=== PATIENT | male | born 1935 | race Caucasian/White ===

== ENCOUNTER 2017-03-17 20:12 | Inpatient (IN) | payer MEDICARE, OTHER ==
[~2017-03-17] VITALS: Ht 175.3 cm; Wt 80.7 kg
--- NOTE | ~2017-03-17 | CONS ---
[facility] [address], [place] [address] Cancelled PATIENT NAME: GEORGE TANNER CONSULTATION DATE OF : 37 PHYSICIAN: NICHOLAS AU MD REPORT #: [id number] REPORT IS CONFIDENTIAL AND NOT TO BE RELEASED WITHOUT AUTHORIZATION
[~2017-03-17 20:12] MED LIST: ASPIRIN EC81 MG PO; FLOMAX0.4 MG PO; MULTI VITAMIN1 EACH PO; PERCOCET 7.5-31 EACH PO; VITAMIN C1000 MG PO
[2017-03-17] MEDS ORDERED: ATORVASTATIN CA20 MG PO (20:29)
[2017-03-17] MEDS ORDERED: METOPROLOL SUCC25 MG PO (20:29)
--- NOTE | 2017-03-18 02:02 | NUR ---
PT ARRIVED TO ROOM 127 AT 2300. TRANSFERRED SELF TO BED FROM [facility]. CHEST TUBE IN PLACE TO WATER SEAL. PLACED TO SUCTION UP TO -80mmHg WALL SUCTION (PER GEM SETTER RECOMMENDATION). SUCTION BELLOW EXPANDED TO KUNAL. SUCTION PRESSURE AT -[id number]. WATER SEAL FILLED TO 2CM LEVEL WITHOUT FLUCTUATION IN WATER LEVEL. SANGINEOUS SHADOWING NOTED ON TAPE DRESSING COVERING INSERTION SITE. NO CREPITUS NOTED. PT DENIES NEED FOR PAIN MEDICATION.
--- NOTE | 2017-03-18 02:47 | NUR ---
IN TO ASSESS PT. PT DENIES NEEDS. CHEST TUBE IN PLACE, NO CHANGES FROM PREVIOUS ASSESSMENT.
--- NOTE | 2017-03-18 03:59 | NUR ---
PT AWAKEND BY NEED TO VOID. PULLS AGAINST WALKER TO GET OOB. AMB TO BR USING WALKER TO STEADY SELF. VOIDED QS IN TOILET.BACK TO BED.HR 100-105 SR. DECLINES MOST OFFERS OF ASSISTANCE. DECLINED OFFER OF SOMETHING TO DRINK.
--- NOTE | 2017-03-18 06:02 | NUR ---
PT ASLEEP. ASSESSMENT OF CHEST TUBE UNCHANGED. O2 DECREASED TO 1L NC FOR SPO2 98% ON 2L.
--- NOTE | 2017-03-18 09:53 | NUR ---
PT AWAKE AND ALERT, VITAL SIGNS TAKEN AND PT DENIES C/O OF DISCOMFORT. STATES PAIN "MAYBE A [address] TO 20 CM WALL SUCTION AND DRAINING SMALL AMT OF S/S/ FLUID. PT VOIDING TO URINAL - CLEAR YELLOW URINE. ASSESSMENT COMPLETED.
--- NOTE | 2017-03-18 10:27 | NUR ---
PT SLEEPING WITH REU. SATS 96% ON 2L PER NC.
--- NOTE | 2017-03-18 11:23 | NUR ---
WOUND CARE NURSES, Moose AKINS AND Daniel WALSH IN TO ASSESS PT SKIN.
--- NOTE | 2017-03-18 11:54 | NUR ---
PT AWAKE, ASSESSMENT COMPLETED, DENIES C/O OF DISCOMFORT AT THIS TIME. PT USING IS VERY WELL, UP TO 2500 MLS.
--- NOTE | 2017-03-18 13:43 | NUR ---
PT AT 100% OF LUNCH, IN TO VISIT WITH PT.
--- NOTE | 2017-03-18 14:43 | NUR ---
PT IS RESTING IN BED, JORGE BY HIS SIDE. BOTH FRIENDLY, THANKFUL FOR THE CARE THAT PT HAS RECEIVED. PT EXPRESSED SOME CONCERN FOR HEALTH ISSUES JORGE IS EXPERINCING WELL. SHE IS TO GO TO [place] FOR TESTS LATER THIS WEEK. THEIR SONS WILL ARRANGE FOR HER TRANSPORTATION. HAD PRAYER WITH BOTH OF THEM, WILL CONTINUE TO FOLLOW
--- NOTE | 2017-03-18 14:48 | NUR ---
MED REC COMPLETE WITH PATIENT INTERVIEW. PATIENT HAS LOW ENERGY FROM METOPROLOL. PATIENT ONLY TAKES ONE DOSE IN THE EVENING. PATIENT FILLS AT [facility] [place] [facility] [place].
--- NOTE | 2017-03-18 16:03 | NUR ---
ASSESSMENT AND VS COMPLETED. PT STATES "I CAN FEEL THAT TUBE WHEN I TAKE A DEEP BREATH". DENIES NEED FOR PAIN MED AT THIS TIME. PT RESTING WITH HOB ELEVATED, VISITING WITH PT IN ROOM. CT DRAINING SMALL AMT S/S FLUID.
--- NOTE | 2017-03-18 16:20 | CONS ---
[facility] [address], [place] [address] Signed DATE OF SERVICE: 03/17/2017 REFERRING PHYSICIAN: Dr. Candy Ribeiro. CHIEF COMPLAINT: Shortness of breath. HISTORY OF PRESENT ILLNESS: Aldo is an 81-year-old gentleman, who came back in 2005 with a right-sided pneumothorax requiring chest tube placement. He said that probably the last week he has had progressive shortness of breath and a sense of tightness on his right chest. He finally came into the emergency room with his for evaluation. He has no shortness of breath here or any increased work of breathing, and he is able to talk in full sentences. Chest x-ray shows near complete right pneumothorax. I was therefore asked to see him as a general surgeon on-call here in the ER. PAST MEDICAL HISTORY: Pneumothorax in 2016, hypertension, hypercholesterolemia, benign prostatic hyperplasia, and is hard of hearing. PAST SURGICAL HISTORY: He had back surgery in 1965. There was no metal. He had a right chest tube placed in 2005. He has had bilateral knee surgeries long time ago with Dr. Dinero and Dr. Peterson. SOCIAL HISTORY: He smoked heavy for 4 or 5 years back in the 60s and quit. He has occasional drink. He is to his , Alissa, at [phone]. He has 2 children. She has 2 children. They live in her house and he continues to drive. 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 He goes up to see Dr. Stanford at the [facility] in [place], [place]. FAMILY HISTORY: Dad of old age. Mom ended up with complications of tetanus. REVIEW OF SYSTEMS: He had 10 systems reviewed and there are no new findings. ALLERGIES: None. MEDICATIONS: Tamsulosin, multivitamin, vitamin C, aspirin, atorvastatin and metoprolol. PHYSICAL EXAMINATION: GENERAL: Kalia is an 81-year-old gentleman, who is lying supine semi-recumbent in his ER Electronically Signed By: NICHOLAS AU MD 03/18/17 1620 PATIENT NAME: ALDO TANNER CONSULTATION DATE OF : 36 PHYSICIAN: NICHOLAS AU MD REPORT #: [id number] REPORT IS CONFIDENTIAL AND NOT TO BE RELEASED WITHOUT AUTHORIZATION [facility] [address], [place] [address] Signed bed. His is at the bedside. LUNGS: He does not have any shortness of breath or increased work of breathing. He has decreased breath sounds on the right. HEART: Regular rate and rhythm. ABDOMEN: Soft, nontender. LABORATORY DATA: His white blood cell count is 10, hemoglobin 15, neutrophils 68, platelets 221. IMAGING: Chest x-ray shows near complete right pneumothorax. ASSESSMENT AND PLAN: Aldo is an 81-year-old gentleman with significant right pneumothorax. This represents the 2nd pneumothorax on the same side over the course of about a year. I explained to Kalia we would go ahead and place a chest tube here in the emergency room. We went through that in great detail. He has expressed understanding and would like to proceed. MD BRENT Bynum/Efren /[id number] cc: MD Nicholas Devries MD Electronically Signed By: NICHOLAS AU MD 03/18/17 1620 PATIENT NAME: ALDO TANNER CONSULTATION DATE OF : 36 PHYSICIAN: NICHOLAS AU MD REPORT #: [id number] REPORT IS CONFIDENTIAL AND NOT TO BE RELEASED WITHOUT AUTHORIZATION
--- NOTE | 2017-03-18 16:20 | OR ---
[facility] [address] [place], [place] [address] Signed DATE OF SERVICE: 03/17/2017 PREOPERATIVE DIAGNOSIS: Recurrent right pneumothorax. POSTOPERATIVE DIAGNOSIS: Recurrent right pneumothorax. PROCEDURES: Placement of right 28-Anguillan chest tube. ESTIMATED BLOOD LOSS: None. INDICATIONS: Aldo is an 81-year-old gentleman, who came in 2016 with his fist right-sided pneumothorax. He required chest tube placement. He said he smoked heavily for 4 or 5 years back in the 60s, but quit when he first came out of the [employer]. In the meantime he said he has done well. This week he has had progressive shortness of breath. Some tightness in his chest. He came to the emergency room with his and sure enough, a chest x-ray confirmed a complete pneumothorax on the right. I was asked to see him as a general surgeon containers sales representative. I met with Aldo and his here in the emergency room. We discussed his recurrent pneumothorax. We discussed the chest tube placement. He understands there is risk including, but not limited to bleeding, infection, scarring, change in contour of the skin, damage to his lung, persistent air leak of his lung or inability to re-expand the lung completely or possible need for additional procedures. He expressed understanding and wished to proceed. PROCEDURE NOTE: Aldo was placed supine semi-recumbent in his ER bed. The right chest wall was prepped and draped in the usual sterile fashion. Local anesthetic was injected into the skin in between the intercostal space. An incision was made obliquely to open up the skin and we tunneled this up over 2 ribs and into the chest. The 28-Anguillan chest tube was inserted without any resistance as expected. It was hooked up to our atrium. It was held in place with 0 silk sutures. Dry gauze and tape was applied to the chest tube site. We just finished our repeat chest x-ray and his lung has completely expanded without any obvious air leak. He is doing well and has no shortness of breath or increased work of breathing and he will be admitted to the hospital. MD BRENT Bynum/Amberl /[id number] Electronically Signed By: NICHOLAS AU MD 03/18/17 1620 PATIENT NAME: ALDO TANNER OPERATIVE REPORT DATE OF : 36 PHYSICIAN: NICHOLAS AU MD REPORT #: [id number] REPORT IS CONFIDENTIAL AND NOT TO BE RELEASED WITHOUT AUTHORIZATION [facility] [address] [place] [address] [place], [place] [address] Signed cc: MD Nicholas Devries MD Electronically Signed By: NICHOLAS AU MD 03/18/17 1620 PATIENT NAME: ALDO TANNER OPERATIVE REPORT DATE OF : 36 PHYSICIAN: NICHOLAS AU MD REPORT #: [id number] REPORT IS CONFIDENTIAL AND NOT TO BE RELEASED WITHOUT AUTHORIZATION
--- NOTE | 2017-03-18 16:31 | NUR ---
DR. AU IN TO ASSESS PT.
--- NOTE | 2017-03-18 17:03 | EKG ---
[facility] [address] [facility] [place] [address] Signed Normal sinus rhythm Normal ECG No previous ECGs available Confirmed by KRISTEN LEBLANC MD ([id number]) on 03/18/2017 5:02:51 PM Electronically Signed By: KRISTEN LEBLANC MD 03/18/17 1703 PATIENT NAME: GEORGE TANNER Electrocardiogram DATE OF : 37 PHYSICIAN: KRISTEN LEBLANC MD REPORT #: [id number] REPORT IS CONFIDENTIAL AND NOT TO BE RELEASED WITHOUT AUTHORIZATION
--- NOTE | 2017-03-18 17:32 | NUR ---
REPORT RECEIVED VIA TELEPHONE FROM ALFONSO HUGHES IN CCU. WILL TRANSFER PT TO ROOM 114 SOON.
--- NOTE | 2017-03-18 18:18 | NUR ---
RIGHT HAND IV SITE WITH REDNESS NOTED, IV DC'D WITH CATH INTACT. 22 GAUGE IV INSERTED IN LEFT HAND, IV D5 LR RUNNING AT 50 MLS/HR.
--- NOTE | 2017-03-18 18:50 | NUR ---
PT ATE 100% OF DINNER, AMBULATED TO BATHROOM WITH ASSIST. PT HAD MEDIUM BROWN, FORMED BM. PT AMBULATED TO ROOM 114 ON MED/SURG, REPORT GIVEN TO MED/SURG NURSE.
--- NOTE | 2017-03-18 19:10 | NUR ---
BEDSIDE REPORT RECEIVED FROM OFFGOING NURSE. PT LYING IN BED DENIES PAIN, SOB. DENIES NEEDS AT THIS TIME. CALL LIGHT WITHIN REACH.
--- NOTE | 2017-03-18 20:09 | NUR ---
PT ASSESSMENT COMPLETE. PLEASANT AFFECT, PT DENIES PAIN. STATES "IT'S JUST ANNOYING". RATES 1-2/10, STATES IT IS TOLERABLE. PT DENIES SOB. O2 @ 1LPM. CHEST TUBE PRESENT TO WATER SEAL. WALL SUCTION ~80mmHg AND SUCTION PRESSURE 20CM. NO FLUCUATIONS NOTED TO WATER LEVEL. SANGUINEOUS DRAINAGE PRESENT. GAUZE AND TAPE PRESENT TO CHEST TUBE SITE. SANGUINEOUS SHADOWING PRESENT BENEATH TAPE. LUNG SOUNDS CLEAR, NO CREPITUS NOTED TO CHEST TUBE SITE. PT PROVIDED WITH URINAL AT BEDSIDE PER REQUEST. DENIES OTHER NEEDS AT THIS TIME. CALL LIGHT WITHIN REACH.
--- NOTE | 2017-03-18 22:00 | NUR ---
PT SITTING UP IN BED AWAKE. PT DENIES PAIN OR SOB. URINAL AT BEDSIDE, PT USING APPROPRIATELY. PT REQUESTS MORE WATER, PROVIDED. PT DENIES OTHER NEEDS. CALL LIGHT WITHIN REACH.
--- NOTE | 2017-03-19 00:30 | NUR ---
PT RESTING IN BED WITH EYES CLOSED. RESPIRATIONS EVEN AND UNLABORED. PT APPEARS TO BE SLEEPING. CALL LIGHT WITHIN REACH.
--- NOTE | 2017-03-19 02:43 | NUR ---
PT ASSESSMENT COMPLETED. PT DENIES PAIN OR SOB. LUNG SOUNDS CLEAR. CHEST TUBE UNCHANGED FROM PREVIOUS ASSESSMENT. SANGUINEOUS SHADOWING PRESENT TO CHEST TUBE DRESSING PREVIOUSLY NOTED. PT CONTINUES TO USE URINAL AT BEDSIDE. PT DENIES NEEDS AT THIS TIME. CALL LIGHT WITHIN REACH.
--- NOTE | 2017-03-19 05:28 | NUR ---
CCU TX. PT SLEPT MOST OF SHIFT. PAIN VERY WELL CONTROLLED. CHEST TUBE WITH SANGUINEOUS DRAINAGE. O2 @ 1LPM. NO SOB, LUNGS CLEAR. DRESSING TO CHEST TUBE SITE D/I, SANGUINEOUS SHADOWING NOTED, UNCHANGED THIS SHIFT. D5LR @ 50. SBA.
--- NOTE | 2017-03-19 07:30 | NUR ---
one person assist patient up to chair. assist with bath. oral care done. linenes changed. call light in reach. bugs found in room. charge nurse and facilities notified. patient would like to stay in his room.fresh ice water given.
--- NOTE | 2017-03-19 08:40 | NUR ---
PT AWAKE SITTING UP IN RECLINER EATING BREAKFAST, SAMEER WELL. DENIES PAIN OR NAUSEA. DENIES SOB OR DIFFICULTY BREATHING. CHEST TUBE IN PLACE TO WALL SUCTION. DRESSING TO RIGHT CHEST HAS MODERATE AMOUNT OF OLD SHADOWING, ANGELY AWARE. PT SATTING MID 90'S ON 1LNC. IV INFUSING IN LEFT HAND WNL, NO REDNESS OR INFLAMMATION AT SITE. PT ALERT AND ORIENTED, CALLS APPROPRIATELY. CALL LIGHT WITHIN REACH.
--- NOTE | 2017-03-19 10:29 | NUR ---
PATIENT SITTING UP IN CHAIR. IN ROOM WITH HIM. FRESH ICE WATER GIVEN. ORAL CARE DONE. NO OTHER NEEDS AT THIS TIME. CALL BUTTON IN REACH.
--- NOTE | 2017-03-19 11:15 | NUR ---
PT REQUESTED TO GET BACK TO BED FROM CHAIR. SBA TO BED, AMB WELL. DENIES PAIN OR OTHER CONCERNS. CHEST TUBE IN PLACE, NO CHANGES TO DRESSING OR INSERTION SITE, NO CREPITUS NOTED. AT BEDSIDE. CALL LIGHT WITHIN REACH.
--- NOTE | 2017-03-19 13:14 | NUR ---
PT MOVED FORM CCU LAST NIGHT. SITTING UP IN BED, SEEMS MORE COMFORTABLE TODAY. HE IS VERY ALERT AND ORIENTED. IS IS IN [place] AT DRS APPT. SHE IS TO STOP BACK IN WHEN SHE GETS IN TOWN. FRIEND CAME BY TO VISIT. I FELT IT BEST I LEAVE AND LET THEM VISIT. WILL FOLLOW NEEDED
--- NOTE | 2017-03-19 13:54 | NUR ---
PATIENT SITTING UP IN BED. FRESH ICE WATER GIVEN. NO NEEDS AT THIS TIME. VISITORS IN ROOM WITH HIM. CALL BUTTON IN REACH.
--- NOTE | 2017-03-19 14:30 | NUR ---
COTY CARE DONE. PATIENT ABULATED HALLWAY ONE TIME AROUND ONE PERSON ASSIST WITH WALKER. PATIENT STATES THAT SHE IS IRRITATED DUE TO HER HEMOROID PAIN AND BEING TIERED. PATIENT REFUSED SHOWER. BACK IN BED WITH CALL BUTTON IN REACH. NO OTHER NEEDS AT THIS TIME.
--- NOTE | 2017-03-19 14:45 | NUR ---
PATIENT TOOK HER OXYGEN TUBING OFF OXYGEN LEVEL AT 74%. PLACED NC BACK ON AND BUMPED OXYGEN UP TO 6 PER RT REQ. SAT BACK UP TO 93% PATIENT NOW ON 5L OF O2 And level at 91%. patient states she forgot to put NC back on. call button in reach. no other needs at this time.
--- NOTE | 2017-03-19 15:25 | NUR ---
PT AWAKE IN BED, VISITING WITH FAMILY. DENIES NEEDS OR CONCERNS AT THIS TIME. CALL LIGHT WITHIN REACH.
--- NOTE | 2017-03-19 17:30 | NUR ---
PT ATE ALL OF DINNER, SAMEER WELL. SBA UP TO RESTROOM FOR PM CARES. PT BRUSHED TEETH, WASHED FACE AND HANDS. AMB BACK TO BED. SATTING 95% ON 1LNC. DENIES DIFFICULTY OR SOB. CHEST TUBE REMAINS IN PLACE, NO CHANGES TO DRESSING. CALL LIGHT WITHIN REACH.
--- NOTE | 2017-03-19 20:15 | NUR ---
IN TO MEET PT, REPORT RECV'D. PT AWAKE AND ALERT. WATCHING TV. CHEST TUBE IN PLACE. SUCTION AND O2 IN PLACE. FRESH WATER GIVEN. NO FURTHER NEEDS AT THIS TIME. CALL LIGHT WITH IN REACH.
--- NOTE | 2017-03-19 22:22 | NUR ---
IN TO CHECK ON PT, PT APPEARS TO BE SLEEPING. NO APPARENT DISTRESS NOTED. CHEST TUBE AND O2 IN PLACE. CALL LIGHT WITH IN REACH.
--- NOTE | 2017-03-20 00:42 | NUR ---
IN TO CHECK ON PT, PT APPEARS TO BE SLEEPING. NO APPARENT DISTRESS NOTED. CHEST TUBE AND O2 IN PLACE. CALL LIGHT WITH IN REACH.
--- NOTE | 2017-03-20 02:38 | NUR ---
IN TO CHECK ON PT, PT APPEARS TO BE SLEEPING. NO APPARENT DISTRESS NOTED. CHEST TUBE IN PLACE, O2 IN PLACE. CALL LIGHT WITH IN REACH.
--- NOTE | 2017-03-20 04:19 | NUR ---
PT HAS HAD UNEVENTFUL SHIFT, SLEPT WELL. NO COMPLAINTS OF PAIN. CHEST TUBE IN PLACE WITH SANGUINEOUS DRAINAGE. O2 @ 1L. DRSG D/I. SHADOWING AND OLD DRAINAGE NOTED ON DRESSING, NO CHANGE THROUGHOUT THE SHIFT. NO SOB NOTED, LUNGS CLEAR. PT AAO X3. CXR ORDERED FOR THIS AM. SUPPLIES AT BEDSIDE PER DR. AU.
--- NOTE | 2017-03-20 07:15 | NUR ---
IN TO MEET PT, REPORT RECVD. PT AWAKE AND ALERT, WATCHING TV. CHEST TUBE DRSG ASSESSED. SPOT CHECK O2 COMPLETED. NO FURTHER NEEDS AT THIS TIME. CALL LIGHT WITH IN REACH.
--- NOTE | 2017-03-20 08:11 | NUR ---
PATIENT SITTING UP AT EDGE OF BED USING URINAL, TOLERTING ACTIVITY WELL. NO SOB, 1L NC. SPOT CHECK 93% SATURATION. CHEST TUBE INTACT, ON LOW CONTINUIOUS 82 MM/HG. GOOD AIR MOVMENT THROUGHOUT LUNGS, NOTED SOME ADVENTASCIOUS SOUNDS. AFEBRILE. PATIENT STATES " I SLEPT WELL LAST NIGHT". AAOX3. PATIENT REPORTS TUBE MAY BE DISCONTINUED TODAY PENDING CHEST XRAY RESULTS.
--- NOTE | 2017-03-20 11:00 | NUR ---
ROUNDED WITH DR. AU. ASSISTED WITH REMOVING CHEST TUBE. PATIENT TOLERATED WELL. PATIENT STATES " I AM FEELING BETTER NOW THAT ITS OUT". PLAN TO AMBULATE IN HALLS.
--- NOTE | 2017-03-20 13:00 | NUR ---
PATIENT RESTING BACK IN BED, STATES " I AM FEELING BETTER". NO COMPLAINTS OF PAIN. LUNG SOUNDS DIMINISHED IN RIGHT BASE. VOIDING WELL. AAOX3
--- NOTE | 2017-03-20 13:51 | NUR ---
PT SITTING UP IN BED, SON ROLDAN HAD JUST BEEN BY TO VISIT. HE WAS FEELING MUCH BETTER-DRAIN WAS REMOVED. PLAN IS TO DC TOMORROW. GOOD CONVERSATION, STAFF WAITING TO DO VITALS. EXTENDED A BLESSING, WILL FOLLOW NEEDED
--- NOTE | 2017-03-20 16:23 | NUR ---
GOT UP IN CHAIR FOR DINNER.
--- NOTE | 2017-03-20 16:40 | NUR ---
PATIENT AWAKE IN BED. TOOK VITALS. THEY TOOK CHEST TUBE OUT
--- NOTE | 2017-03-20 16:42 | NUR ---
AWAKE IN BED. MOVED TO CHAIR. EMPTYED URNAIL. FRESH ICE WATER. COMPLETE LINEN CHANGE. PATIENT HAS CALL LIGHT IN REACH.
--- NOTE | 2017-03-20 17:00 | NUR ---
ADMINISTERED MIRALAX TO PATIENT, PER REQUEST. UP TO RECLINER, ENCOURAGED TO WALK IN HALLS. PATIENT APPEARS TO VERBALIZE UNDERSTANDING WITH POC.
--- NOTE | 2017-03-20 18:21 | NUR ---
PATIENT CHEST TUBE REMOVED AROUND [address] AU. PATIENT TOLERATED WELL. NO ADVERSE EFFECTS. LUNG SOUNDS HAVE NOT CHANGED, CONTINUES TO BE DIMINISHED IN RIGHT BASE. VS STABLE. ACTIVITY INCREASED. PATIENT REPORTS GOOD PAIN CONTROL THROUGHOUT DAY.
--- NOTE | 2017-03-20 19:15 | NUR ---
IN TO SEE PT, REPORT RECV'D. PT AWAKE AND ALERT, WATCHING TV. PT STATES HE HAD A "GREAT DAY." NO NEEDS AT THIS TIME. CALL LIGHT IN REACH.
--- NOTE | 2017-03-20 20:50 | NUR ---
IN TO SEE PT, ASSESSMENT COMPLETE. PM MEDICATION GIVEN. DRSG ASSESSED. MEDIUM CIRICULAR AREA OF SHADOWING NOTED. PT DENIES CHEST PAIN AND SOB. SL IN PLACE. NO NEEDS AT THIS TIME. CALL LIGHT IN REACH.
--- NOTE | 2017-03-20 23:54 | NUR ---
IN TO CHECK ON PT, PT APPEARS TO BE SLEEPING. NO APPARENT DISTRESS NOTED. RR 16, EVEN AND UNLABORED. CALL LIGHT WITH IN REACH.
--- NOTE | 2017-03-21 01:52 | NUR ---
IN TO CHECK ON PT, PT APPEARS TO BE SLEEPING. RR 17, EVEN AND UNLABORED. CALL LIGHT WITH IN REACH.
--- NOTE | 2017-03-21 04:52 | NUR ---
PT RESTED WELL THROUGH OUT THE SHIFT. NO COMPLAINTS OF PAIN OR SOB. RLL SOUNDS DIMINISHED, BUT CLEAR IN ALL OTHER AREAS. PT UP TO RESTROOM INDEPENDENTLY OR STANDBY ASSIST. AAO X3, PLEASANT DEMEANOR. USES CALL LIGHT APPROPRIATLY.
--- NOTE | 2017-03-21 06:30 | NUR ---
IN TO CHECK ON PT, PT AWAKE AND UP TO BATHROOM. PT STATES HE "FINALLY HAD A BM." IV SITE NON INTACT. IV DC'D. VITAL OBTAINED. O2 985 ON RA. DENIES CHEST PAIN AND SOB. DRSG D/I, SHADOWING UNCHANGED. NO FURTHER NEEDS AT THIS TIME. CALL LIGHT WITH IN REACH.
--- NOTE | 2017-03-21 08:20 | NUR ---
PATIENT UP SITTING IN RECLINER, READY TO AMBULATE IN [place]. LUNG SOUNDS CLEAR THROUGHOUT OUT, IMPROVED FROM YESTERDAY. NO COMPLAINTS OF PAIN. IS HAVING A REGULAR BM NOW. PATIENT STATES "I FEEL GOOD ENOUGH TO GO HOME". BREAKFAST ORDERED AND ON ITS WAY. NO NEW DRAINAGE TO BANDAGE ON RIGHT SIDE.
--- NOTE | 2017-03-21 11:07 | NUR ---
PT UP WALKING THE HALLS W/O O2. PT SAID HE FEELS THE BEST HE HAS FELT ALL WEEK. IS WAITING FOR THE RESULTS OF X-RAY OF LUNG. IS TRYING TO SET UP VISIT W/RIGGING HELPER AT [facility]. HOPES TO GO HOME TODAY. VERY PLEASED WITH THE CARE HE HAS RECEIVED AT [facility]
[2017-03-21] MEDS ORDERED: NORCO 5-325 TA1 EACH PO (12:10)
[2017-03-21] MEDS ORDERED: MIRALAX17 GM PO (12:11)
--- NOTE | 2017-03-25 10:12 | DS ---
[facility] [address] [place], [place] [address] Signed DATE OF ADMISSION: 03/17/17 DATE OF DISCHARGE: 03/21/17 FINAL DIAGNOSIS Recurrent ipsilateral right-sided spontaneous pneumothorax. PROCEDURE Placement of right chest tube. Multiple chest x-rays. HISTORY OF PRESENT ILLNESS Aldo is an 81-year-old gentleman, who still lives with his in their house here and continues to drive and maintain good functional status. 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 He came in 2005 with spontaneous pneumothorax requiring a chest tube placement, did well and was discharged from followup. He then came back after about a week of shortness of breath and dyspnea on exertion. The chest x-ray confirmed his complete right-sided pneumothorax. I was called to see him as a general surgeon emissions engineer. HOSPITAL COURSE I met Kalia and his in the emergency room. We placed a 28-Australian right-sided chest tube with re-expansion of the entire lung. From the very beginning, he never had an air leak. We left the chest tube in a little over 2 days and we then removed it. He has just a tiny sliver of an apical pneumothorax that has not changed even after the chest tube was removed. He has been ambulating in the hallways and using his incentive spirometer quite well. He has been tolerating diet and been on his chronic home medications. He never demonstrates much pain and therefore has not used much pain medication. At this point, he is doing quite well and we are going to discharge him to home. DISCHARGE PLANS AND MEDICATIONS Kalia will be discharged to home with a prescription for Stehekin 5/325, 1-2 tablets p.o. q.4-6 hours p.r.n. pain. We will dispense 25 tablets with no refills. We recommended he use some MiraLAX at home if he experiences constipation. We did give him MiraLAX here in the hospital and that worked out quite nicely. Jerry rodriguez can resume all his chronic medications at home. He can perform his activities of daily living including walking up and down stairs and bathing as usual. However, he should not lift over about 20 pounds. We are going to have him remove our chest tube site dressing on 03/22/2017. He can then Electronically Signed By: NICHOLAS AU MD 03/25/17 1012 PATIENT NAME: ALDO TANNER DISCHARGE SUMMARY DATE OF : 36 PHYSICIAN: NICHOLAS AU MD REPORT #: [id number] REPORT IS CONFIDENTIAL AND NOT TO BE RELEASED WITHOUT AUTHORIZATION [address] [address] Signed shower and bathe directly over the chest tube site. I have asked him not to submerge the chest tube site for a full 2 weeks. He can re-dress the site as needed. He has 1 silk stitch remaining in that skin. We will remov jennifer that silk stitch in 5-7 days when he returns to the office. He is always welcome to put some ice over that area for pain control as well. I reviewed this with Aldo, actually for several days now. He has expressed understanding and agrees with the above plan. He also told me that if there was something more definitive to treat his recurrent pneumothorax, he would like to consider that including surgery. We will have to readdress that in the office. MD BRENT Bynum/Efren /[id number] cc: Dr. Umu Stanford [place], [place] Electronically Signed By: NICHOLAS AU MD 03/25/17 1012 PATIENT NAME: ALDO TANNER DISCHARGE SUMMARY DATE OF : 36 PHYSICIAN: NICHOLAS AU MD REPORT #: [id number] REPORT IS CONFIDENTIAL AND NOT TO BE RELEASED WITHOUT AUTHORIZATION
== END 2017-03-21 13:17 | disposition home or self-care (01) | DRG 201 ==
LOC: ED 20:12 → CCU 22:45 → MS 03-18 18:45
PROVIDERS: ADMIT Colon & Rectal Surgery
PROC: 0W9900Z Drainage of Right Pleural Cavity with Drainage Device, Open Approach (ICD-10-PCS; principal; 2017-03-17)
DX: J93.83 Other pneumothorax (principal); Z87.891 Personal history of nicotine dependence; I10 Essential (primary) hypertension; H91.93 Unspecified hearing loss, bilateral; E78.00 Pure hypercholesterolemia, unspecified; N40.0 Benign prostatic hyperplasia without lower urinary tract symptoms
CPT/HCPCS: 71010; 71020; 80053; 83735; 84484; 85025; 85610; J7120

== ENCOUNTER 2017-05-05 09:59 | Inpatient (IN) | payer MEDICARE, OTHER ==
[~2017-05-05] VITALS: Ht 175.3 cm; Wt 81.7 kg
[~2017-05-05 09:59] MED LIST changes: +ATORVASTATIN CA20 MG PO; +METOPROLOL SUCC25 MG PO; +MIRALAX17 GM PO; +NORCO 5-325 TA1 EACH PO
--- NOTE | 2017-05-05 11:23 | NUR ---
RECEIVED REPORT VIA TELEPHONE FROM NILESH HUGHES IN ED. ALL QUESTIONS ANSWERED. REPORTED THAT MD DID NOT WANT LABS OR IV IN PATIENT. CHEST TUBE ON RIGHT SIDE.
--- NOTE | 2017-05-05 17:45 | NUR ---
ED ADMIT. CORTEZ PATIENT. CHEST TUBE RIGHT SIDE. 10 OCCITAN. 20CM SUCTION. HARD POKE, LFA IV. TKO. HISTORY OF LUNG COLLAPSE X2. AT BEDSIDE. REGULAR DIET.
--- NOTE | 2017-05-05 20:07 | NUR ---
PT ASSESSMENT COMPLETE. PT DENIES ANY PAIN, SOB, N/V. PT HAS CLEAR LUNG SOUNDS. PT ON 2 LPM O2 VIA NASAL CANNULA, SATS 98% PER CONTINUOUS PULSE OXIMETER. CHEST TUBE IN PLACE TO RIGHT SIDE, PATENT AND INTACT, NO AIR LEAK NOTED AT THIS TIME, SET AT 20 CM SUCTION, NO DRAINAGE NOTED. IV FLUIDS INFUSING WITHOUT DIFFICULTY. PT ALERT AND ORIENTED, IN GOOD SPIRITS THIS EVENING. CALL LIGHT WITHIN REACH. PT DENIES ANY FURTHER NEEDS AT THIS TIME.
--- NOTE | 2017-05-06 00:05 | NUR ---
PT WAKES EASILY WHEN STAFF WALK IN ROOM. PT SATS 96% ON 2 LPM O2 VIA NASAL CANNULA. PT DENIES ANY PAIN. CHEST TUBE HAS GOOD SUCTION AT 20 CM, NO LEAKING NOTED, NO DRAINAGE NOTED. WATER GIVEN PER PT REQUEST. IV FLUIDS INFUSING WITHOUT DIFFICULTY. CALL LIGHT WITHIN REACH. PT DENIES ANY FURTHER NEEDS AT THIS TIME.
--- NOTE | 2017-05-06 02:37 | NUR ---
PT SLEEPING, RR EVEN AND UNLABORED. PT APPEARS COMFORTABLE AT THIS TIME. PT ON 2 LPM O2 VIA NASAL CANNULA. CHEST TUBE TO 20 SM SUCTION, NO LEAKING OR DRAINAGE NOTED. CALL LIGHT WITHIN REACH.
--- NOTE | 2017-05-06 08:35 | NUR ---
pt awake lying in bed. no complaints. chest xray completed at 0700. results back. awaiting Dr Haskins's orders and visit of the patient. no pain.
--- NOTE | 2017-05-06 10:19 | NUR ---
PT IS RESTING IN BED SAFELY WITH CALL LIGHT IN REACH. PT WAS OFFERED A BED BATH BUT DECLINED STATING HE DOES NOT FEEL HE NEEDS ONE. HOWEVER, I WILL ASK AGAIN LATER ON. PT DID NOT NEED ANYTHING ELSE AT THE MOMENT
--- NOTE | 2017-05-06 12:55 | NUR ---
PT SITTING ON SIDE OF BED, LAYED BACK WHEN I SAT DOWN. HE WAS ON O2 NASAL CANULA. HE SAID HE IS DOING MUCH BETTER THAN YESTERDAY MORNING. LUNG COLLAPSED AGAIN, HE IS GETTING FRUSTRATED. WAITING FOR DR TORO. HIS JORGE CAME IN. SHE MENTIONED THAT THEIR SON RIC DOES NOT KNOW PT IS HERE. THEY BOTH REQUESTED I CONTACT AND INFORM HIM. I CALLED TWICE AND ALSO TEXTED HIM TO CALL ME. HE HAS NOT YET RETURNED MY CALLS. HAD PRAYER WITH THEM, WILL CONTINUE TO FOLLOW NEEDED
--- NOTE | 2017-05-06 13:47 | NUR ---
15ML RIGHT CHEST TUBE DRAINAGE MARKED ON DRAIN CONTAINER. DRESSING ON RIGHT CHEST HAS DRIED BLOOD UNDERNEATH WINDOW. NO PAIN OR RESPIRATORY DISTRESS.
--- NOTE | 2017-05-06 14:36 | NUR ---
PT IS SITTING UP IN BED VISITING WITH . PT ASKED FOR MORE ICE WATER
--- NOTE | 2017-05-06 16:15 | NUR ---
PT HAS HAD NO PRN PAIN MEDS. NO PAIN REPORTED. WILL BE STAYING ANOTHER NIGHT PER DR TORO. MINIMAL DRAINAGE OUT FROM CHEST TUBE.
--- NOTE | 2017-05-06 17:21 | NUR ---
NO CHANGES TODAY. 15ML TOTAL BLOODY DRAINAGE INTO CHEST TUBE DRAINAGE CONTAINER. 20CM SUCTION. RIGHT CHEST TUBE DRESSING DRY AND INTACT. DRIED BLOOD UNDER TUBING. "TINY RESIDUAL PNEUMOTHORAX" SEEN ON CHEST XRAY THIS MORNING. ONE MORE NIGHT OF MONITORING. NO PRN PAIN MEDS. EATING REGULAR DIET WELL. 2L O2 VIA NC. USES URINAL.
--- NOTE | 2017-05-06 18:29 | NUR ---
PT IS SITTING UP IN BED WITH CALL LIGHT IN REACH. PT ASKED FOR URINAL TO BE EMPTIED
--- NOTE | 2017-05-06 20:06 | NUR ---
PT REQUESTED TOWELS TO CLEAN HIMSELF UP. PT WAS GIVEN BEDBATH WIPES AND WASH CLOTHS. REMINDED PT NOT TO SHOWER.
--- NOTE | 2017-05-06 20:20 | NUR ---
PT ASSESSMENT COMPLETE. PT JUST GETTING BACK INTO BED FROM HAVING BM AND PM CARE DONE. PT IN GOOD SPIRITS THIS EVENING. PT ON 2 LPM O2 VIA NASAL CANNULA. CHEST TUBE LEAKING SMALL AMOUNT OF SANGUINOUS DRAINAGE AT INSERTION SITE, REINFORCED WITH GAUZE, NO LEAK NOTED IN CHAMBER. WATER SEALED. IV FLUIDS INFUSING WITHOUT DIFFICULTY. PT SATS 100% PER CONTINUOUS PULSE OXIMETER. PT DENIES ANY PAIN, SOB, N/V. CALL LIGHT WITHIN REACH. PT DENIES ANY FURTHER NEEDS AT THIS TIME.
--- NOTE | 2017-05-06 23:50 | NUR ---
PT SLEEPING, RR EVEN AND UNLABORED. IV FLUIDS INFUSING WITHOUT DIFFICULTY. SATS 96% ON 2 LPM PER CONTINUOUS PULSE OXIMETER. CALL LIGHT WITHIN REACH.
--- NOTE | 2017-05-07 02:19 | NUR ---
PT SLEEPING, RR EVEN AND UNLABORED. IV FLUIDS INFUSING WITHOUT DIFFICULTY. SATS 97% ON 2 LPM PER CONTINUOUS PULSE OXIMETER. CALL LIGHT WITHIN REACH.
--- NOTE | 2017-05-07 04:15 | NUR ---
PT SLEEPING, RR EVEN AND UNLABORED. IV FLUIDS INFUSING WITHOUT DIFFICULTY. SATS 96% ON 2 LPM PER CONTINUOUS PULSE OXIMETER. CALL LIGHT WITHIN REACH.
--- NOTE | 2017-05-07 08:08 | NUR ---
PATIENT SITTING ON THE SIDE OF BED. CALL BUTTON IN REACH. FRESH ICE WATER GIVEN. PATIENT REFUSED BATH DUE TO BATH LAST NIGHT. HE HAD BRUSHED HIS TEETH EARLIER THIS AM. NO OTHER NEEDS AT THIS TIME.
--- NOTE | 2017-05-07 09:00 | NUR ---
PT AWAKE SITTING AT EDGE OF BED, ALERT AND ORIENTED. DENIES PAIN, NAUSEA, OR ANY DIFFICULTIES BREATHING. PT SATTING 97% ON 2LNC. CHEST TUBE WITH SCANT AMOUNT OF SANGUINOUS DRAINAGE NOTED, TO WATER SEAL ONLY. NO SIGNS OF AIR LEAK NOTED, NO CREPITUS OR DAINAGE NOTED AT INSERTION SITE, DRESSING INTACT. PT ATE 100% OF BREAKFAST INDEPENDENTLY. CALL LIGHT WITHIN REACH, CALLS APPROPRIATELY. CLEAR LUNG SOUNDS THROUGHOUT. PT WITHOUT COUGH OR SOB.
--- NOTE | 2017-05-07 10:45 | NUR ---
PATIENT RESTING IN BED. FRESH ICE WATER GIVEN. NO OTHER NEEDS AT THIS TIME. CALL BUTTON IN REACH.
--- NOTE | 2017-05-07 12:00 | NUR ---
PATIENT SITTING UP EATING LUNCH WITH IN HIS ROOM.
--- NOTE | 2017-05-07 12:32 | NUR ---
PT SITTING AT BEDSIDE VISITING WITH . ATE ALL OF LUNCH. DENIES NEEDS OR CONCERNS AT THIS TIME. CALL LIGHT WITHIN REACH.
--- NOTE | 2017-05-07 13:02 | NUR ---
PT FEELING BETTER. HIS JORGE IN RM. MAY BE DC'D TODAY-WAITING FOR DR TORO. JORGE EXPRESSED FRUSTRATION WITH THIS CONTINUED ISSUE, IS THERE AN ANSWER? GOOD VISIT, HAD PRAYER WITH THEM. WILL FOLLOW NEEDED
--- NOTE | 2017-05-07 15:15 | NUR ---
PT TRANSPORTED TO IMAGING DEPARTMENT FOR CT SCAN VIA WHEELCHAIR.
--- NOTE | 2017-05-07 15:49 | NUR ---
PT RETURNED FROM CT. IV RESTARTED.
--- NOTE | 2017-05-07 15:50 | NUR ---
LINENS CHANGED. ROOM PICKED UP. FRESH ICE WATER GIVEN. PATIENT IN WITH CT. WAITING IN ROOM.
--- NOTE | 2017-05-07 16:31 | NUR ---
PT REPORTED THAT CHEST TUBE SITE DRESSING CAME LOOSE AND XEROFORM DRESSING FELL OUT. REDRESSED WITH XEROFORM, GAUZE, AND FOAM TAPE. PT SAMEER WELL. LUNGS REMAIN CLEAR THROUGHOUT. DENIES SOB OR DIFFICULTY BREATHING. SATTING 98% ON 2LNC. PT AMB INDEPENDENTLY IN ROOM. CALL LIGHT WITHIN REACH.
--- NOTE | 2017-05-07 18:28 | NUR ---
PATIENT SITTING UP IN BED WATCHING TV. JUST FINISHED DINNER. URINAL EMPTIED. FRESH ICE WATER GIVEN. NO OTHER NEEDS AT THIS TIME. CALL BUTTON IN REACH.
--- NOTE | 2017-05-07 20:00 | NUR ---
RECEIVED REPORT AT 1900. FOUND PT IN BED IN GOOD SPIRITS. PT DENIED SOB OR PAIN. DRESSING ON RIGHT CHEST IS C/D/I.
--- NOTE | 2017-05-07 22:20 | NUR ---
V/S ARE WDL, ALL LOBES ARE CLEAR, DRESSING ON RIGHT CHEST IS C/D/I. PT DENIES PAIN. NO OTHER PROBLEMS NOTED AT THIS TIME, DIGITAL IMAGING SPECIALIST IS STILL ON, PT IS ON 2L OF O2 VIA NC. OS SATS ARE >90%.
--- NOTE | 2017-05-08 00:33 | NUR ---
PT IS SLEEPING AT THIS TIME
--- NOTE | 2017-05-08 03:00 | NUR ---
PT IS SLEEPING AT THIS TIME.
--- NOTE | 2017-05-08 05:47 | NUR ---
V/S ARE WDL, PT DENIES PAIN AND SOB. ALL LOBES ARE CLEAR, DURING THE SECOND ASSESSMENT THE RML WAS DIMINISHED. DRESSING ON RIGHT SIDE OF CHEST IS C/D/I. I&O ARE VERY GOOD. PT SLEPT MOST OF THIS SHIFT. NO NEW ISSUES NOTED WITH THIS PT.
--- NOTE | 2017-05-08 08:37 | NUR ---
SITTING UP IN BED, TALKATIVE, ALERT AND ORIENTED, REPORT WAS RECEIVED FROM CUTTING MACHINE TENDER RN. STATES NO PAIN AND STARTING TO FEEL NORMAL.
--- NOTE | 2017-05-08 10:43 | NUR ---
CHECKING ON PATIENT, STATES DOING FINE. REINFORCED THE BANDAGE ON HIS RIGHT SIDE.
--- NOTE | 2017-05-08 13:16 | NUR ---
DR TORO WAS IN ROOM AND DISCUSSED DISCHARGE WITH PATIENT AND HIS . DISCHARGE ORDERS WRITTEN.
--- NOTE | 2017-05-30 07:48 | OR ---
[facility] [address] [place], [place] [address] Signed DATE OF PROCEDURE: 05/05/17 PREOPERATIVE DIAGNOSIS: Right total pneumothorax. POSTOPERATIVE DIAGNOSIS: Right total pneumothorax. PROCEDURE PERFORMED: Placement of right 10-Mongolian chest tube. SURGEON: Hayden Toro MD. ANESTHESIA: 1% Lidocaine. INDICATION This 81-year-old white man has now suffered his 3rd pneumothorax on the right side. He has had placement of a chest tube by me in the past greater than a year ago and Dr. Yepez sometime after that. He presents to the emergency room and evaluated by Dr. Sommers with shortness of breath, though not severely dyspneic and mild chest discomfort and chest x-ray shows essentially total right-sided pneumothorax without sign of mediastinal shift. A chest tube is indicated. The risks of bleeding, infection, and other unforeseen complications were reviewed with him and his . They understand and wished to proceed. FINDINGS The pleural space was entered without complication. A 10-Mongolian chest tube was placed with a Seldinger technique without problem. A post procedure chest x-ray is pending. He did feel subjectively better after the tube was placed. DESCRIPTION OF PROCEDURE The patient was in the semi-recumbent position in the emergency room. Arm elevated upward. The right chest wall was prepared with a Chlorhexidine solution and draped sterilely, 1% Lidocaine was injected in about the 6th anterior intercostal space lateral to the nipple. Using the needle, the pleural space was entered and withdrawal with the anesthetic filled syringe showed bubbles consistent with the pleural space. A small incision was made at the site with an 11 blade and using an Arrow cardiac pacemaker peel-away sheath introducer, the pleural space was entered and a 10-Mongolian pediatric chest tube placed through the peel-away introducer and it was removed. The device was attached with the adaptor to the new Pleur-evac system showing air filling the device rather rapidly. His chest tube was secured with a 2-0 nylon suture. [place] tape was used to secure the connections and an OpSite was applied as well. A post procedure chest x-ray is pending. Electronically Signed By: HAYDEN TORO MD 05/30/17 0748 PATIENT NAME: GEORGE TANNER OPERATIVE REPORT DATE OF : 37 PHYSICIAN: HAYDEN TORO MD REPORT #: [id number] REPORT IS CONFIDENTIAL AND NOT TO BE RELEASED WITHOUT AUTHORIZATION [address] [place], [place] [address] Signed MD OLI Adams/Efren /[id number] cc: MD Marixa Gates MD [address] [place] [id number] Electronically Signed By: HAYDEN TORO MD 05/30/17 0748 PATIENT NAME: GEORGE TANNER OPERATIVE REPORT DATE OF : 37 PHYSICIAN: HAYDEN TORO MD REPORT #: [id number] REPORT IS CONFIDENTIAL AND NOT TO BE RELEASED WITHOUT AUTHORIZATION
--- NOTE | 2017-05-30 08:27 | DS ---
[facility] [address] [place], [place] [address] Signed DATE OF DISCHARGE: 05/08/17 REASON FOR ADMISSION This 81-year-old white man is known to me from the past having undergone placement of a right mini chest tube for significant right-sided pneumothorax in the past. He suffered additional pneumothorax after that episode and evaluated by Dr. Yepez and a more substantial chest tube was placed. This resolved as well. He presents today with shortness of breath and was evaluated in the emergency room by Dr. Sommers and found to have a near total right pneumothorax. I placed a 10-Bengali right chest tube which allowed for complete reexpansion of the lung. He is admitted for further evaluation and care. PERTINENT PHYSICAL EXAMINATION GENERAL: A pleasant white man who is accompanied by his , appeared not to be in significant respiratory distress. NECK: Trachea midline. No jugular venous distention. No tracheal deviation. Chest: X-ray following chest tube. Showed complete expansion of the lung. No obvious air leak in the chest tube system. ABDOMEN: Soft and easily palpated. HOSPITAL COURSE He was maintained with suction on the chest tube device, a very small pneumothorax was noted the following morning, but he had no sign of air leak. The tube system was placed to water seal and he had continued lack of symptoms as his lung was well expanded. The following day, on May 07, 2017, he underwent CT scan of the chest to assess for underlying lung pathology accounting for the recurrent pneumothorax on the right side. He was not found to have large blebs, but only small parenchymal disease throughout both lungs. His lung was well expanded also. At the time of discharge, he is ambulating well, tolerating a regular diet, has no significant incisional pain, and no pneumothorax. We had consider the possibility of pleurodesis given this being his 3rd pneumothorax. He does not have bleb disease in the typical way. At his advanced age of 81 years, one must consider whether prophylactic pleurodesis would be beneficial. We will consider further. He will be returning to see me in approximately 4 weeks. He is to avoid airline or altitude travel of any sort for the next 2 weeks. If he has problems in the meantime, he will let me know. DISCHARGE MEDICATIONS Include, Flomax 0.4 mg p.o. daily, multivitamin daily, vitamin C daily, aspirin 81 mg daily, Atorvastatin 20 mg p.o. daily. If he has discomfort, a Tylenol or Motrin pill Electronically Signed By: HAYDEN TORO MD 05/30/17 0827 PATIENT NAME: GEORGE TANNER DISCHARGE SUMMARY DATE OF : 37 PHYSICIAN: HAYDEN TORO MD REPORT #: [id number] REPORT IS CONFIDENTIAL AND NOT TO BE RELEASED WITHOUT AUTHORIZATION [facility] [address] [place], [place] [address] Signed would be adequate. He has no pain at this time. DISCHARGE DIAGNOSIS Spontaneous right-sided pneumothorax (3rd episode). Underlying small airways parenchymal disease, no sign of large bullous disease of lung Benign prostatic hypertrophy. Urinary outlet obstruction symptoms. Dyslipidemia. MD OLI Adams/Efren /[id number] cc: MD Marixa Gates MD Electronically Signed By: HAYDEN TORO MD 05/30/17 0827 PATIENT NAME: GEORGE TANNER DISCHARGE SUMMARY DATE OF : 37 PHYSICIAN: HAYDEN TORO MD REPORT #: [id number] REPORT IS CONFIDENTIAL AND NOT TO BE RELEASED WITHOUT AUTHORIZATION
--- NOTE | 2017-05-30 08:27 | CONS ---
[facility] [address] [place], [place] [address] Signed DATE OF CONSULTATION: 05/05/17 PROBLEM: Total right pneumothorax, mildly symptomatic. HISTORY This 81-year-old white man is known to me from the past having undergone placement of a right mini chest tube for significant right-sided pneumothorax in the past. He suffered additional pneumothorax and was evaluated by Dr. Yepez while senior talent acquisition specialist and a conventional chest tube was placed. He had some referral to a Tobacco Cutter in the past that he and his tell me and uncertain just what plan had been in place for his evaluation and treatment. In any case, today he had some shortness of breath, presented to the emergency room, was evaluated by the emergency room physician and found to have a total right-sided pneumothorax without sign of mediastinal shift. He was not severely dyspneic in any way but felt slightly uncomfortable. The patient is rather stoic and not particularly painful on that basis. PHYSICAL EXAMINATION GENERAL: Pleasant white man who is accompanied by his . He appeared not to be in respiratory distress. Trachea was midline. There was no jugular venous distention. No tracheal deviation. The chest x-ray showed an impressive right-sided pneumothorax without mediastinal shift. ABDOMEN: Soft and easily palpated. There is no crepitus of the neck or elsewhere. ASSESSMENT The patient has a significant recurrent right-sided pneumothorax. A chest tube expediently placed is appropriate. The risks of bleeding, infection, and other unforeseen complications related to placement of the tube was discussed with the patient and his and they agree. He will be admitted for further observation. A consideration will be made for a thoracoscopic blebectomy and pleurodesis in the near future since this is his 3rd pneumothorax that is come to medical attention. MD OLI Adams/Efren /[id number] Electronically Signed By: HAYDEN TORO MD 05/30/17 0827 PATIENT NAME: GEORGE TANNERD CONSULTATION DATE OF : 37 PHYSICIAN: HAYDEN TORO MD REPORT #: [id number] REPORT IS CONFIDENTIAL AND NOT TO BE RELEASED WITHOUT AUTHORIZATION [address] [address] Signed cc: MD Kendrick Magana MD Electronically Signed By: HAYDEN TORO MD 05/30/17 0827 PATIENT NAME: GEORGE TANNERRAND CONSULTATION DATE OF : 37 PHYSICIAN: HAYDEN TORO MD REPORT #: [id number] REPORT IS CONFIDENTIAL AND NOT TO BE RELEASED WITHOUT AUTHORIZATION
== END 2017-05-08 13:58 | disposition home or self-care (01) | DRG 200 ==
LOC: ED 09:59 → MS 11:14
PROVIDERS: ADMIT Surgery
PROC: 0W9900Z Drainage of Right Pleural Cavity with Drainage Device, Open Approach (ICD-10-PCS; principal; 2017-05-05)
DX: J93.9 Pneumothorax, unspecified (principal); N13.8 Other obstructive and reflux uropathy; N40.1 Benign prostatic hyperplasia with lower urinary tract symptoms; E78.5 Hyperlipidemia, unspecified; Z87.891 Personal history of nicotine dependence
CPT/HCPCS: 71010; 71020; 71250; 94762; J7120

== ENCOUNTER → 2017-05-21 | Emergency (ER) | payer MEDICARE, OTHER ==
[~2017-05-21] VITALS: Ht 175.3 cm; Wt 81.7 kg
--- NOTE | 2017-05-22 17:13 | CONS ---
[facility] [address] [place], [place] [address] Signed DATE OF PROCEDURE: 05/21/17 REFERRING PHYSICIAN: Dr. Sommers. CHIEF COMPLAINT: Right chest pressure and shortness of breath. HISTORY OF PRESENT ILLNESS Aldo is an 81-year-old gentleman who has had previous right-sided spontaneous pneumothoraces. He walks about a mile every day out to his mailbox and back and he felt the lung go down. He laid down in the house and thought it was any worse, but later that night he thought it was worse so he has come in to the Emergency Room this morning. He and his tell me this is his 4th pneumothorax. He has had 2 prior chest tubes and now this will be his 3rd chest tube. In the ER, the chest x-ray shows complete pneumothorax on the right. I was therefore asked to see him as a general surgeon application security specialist. ALLERGIES: None. MEDICATIONS Aspirin 81 mg p.o. daily, Atorvastatin 40 mg p.o. daily, Metoprolol 25 mg 1/2 tablet p.o. daily, multivitamin 1 tablet p.o. daily, [place] 5/325 one to two tablets p.o. q.4-6 hours p.r.n. pain, Tamsulosin 0.4 mg p.o. daily, Vitamin C 1000 mg p.o. daily. PAST MEDICAL HISTORY Hearing loss, hypertension, recurrent right pneumothorax x4 starting in 2016, benign prostatic hypertrophy, hyperlipidemia. PAST SURGICAL HISTORY Chest tube insertion x2 in 2016 and in 2017, back surgery in 1966 without metal remaining, and bilateral knee surgery. SOCIAL HISTORY He likes a couple cups of coffee a day. He used to smoke in the past particularly when he was in the in the 1960s. He then quit after the . He does not chew tobacco. He has an occasional alcoholic beverage. He does not use illicit drugs. 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 He is , has 2 children of his own and [address] Umu Stanford is his primary care provider at the [facility]. FAMILY HISTORY: Apparently his mom had tetanus. PHYSICAL EXAMINATION VITAL SIGNS: He is afebrile. Vital signs are stable. Electronically Signed By: NICHOLAS AU MD 05/22/17 1713 PATIENT NAME: ALDO TANNER CONSULTATION DATE OF : 37 PHYSICIAN: NICHOLAS AU MD REPORT #: [id number] REPORT IS CONFIDENTIAL AND NOT TO BE RELEASED WITHOUT AUTHORIZATION [facility] [address] [place], [place] [address] Signed CHEST: He is currently in no shortness of breath or increased work of breathing. His is in the room with him. He has absence of breath sounds on the right. HEART: Regular rate and rhythm. ABDOMEN: Soft, benign. I can see his previous chest tube sites are well healed. LABORATORIES: None. RADIOGRAPHIC STUDIES Chest x-rays reviewed and he has complete collapse of the right lung. ASSESSMENT AND PLAN Kalia is an 81-year-old gentleman who presents now with his 4th pneumothorax on the same side. This will represent his 3rd chest tube. Our plan is to go ahead and place his chest tube form today and we are going to get him over to a thoracic surgeon for fluoroscopy stapling of blebs, pleurodesis and so forth. I have been through this with Kalia and his in detail. They have expressed understanding and wished to proceed. MD BRENT Bynum/Amberl /[id number] cc: Umu Stanford MD Electronically Signed By: NICHOLAS AU MD 05/22/17 1713 PATIENT NAME: ALDO TANNER CONSULTATION DATE OF : 37 PHYSICIAN: NICHOLAS AU MD REPORT #: [id number] REPORT IS CONFIDENTIAL AND NOT TO BE RELEASED WITHOUT AUTHORIZATION
--- NOTE | 2017-05-22 17:13 | OR ---
[facility] [address] [place], [place] [address] Signed DATE OF PROCEDURE: 05/21/17 PREOPERATIVE DIAGNOSIS: Recurrent right pneumothorax. POSTOPERATIVE DIAGNOSIS: Recurrent right pneumothorax. PROCEDURE: Placement of right 28-Finnish chest tube. ESTIMATED BLOOD LOSS: None. INDICATIONS Aldo is an 81-year-old gentleman, who had smoked heavily while in the back in the 1960s. When he left the in the , he quit smoking. However, he now presents with his 4th recurrent pneumothorax on the right side. This will make his 3rd chest tube. There were some plans to get him to have pleurodesis and unfortunately he developed recurrent pneumothorax in the mean time. He had walked out to his mailbox and back and knew he had pneumothorax. When it did not improve, he had his bring him into the emergency room. They are very familiar with this whole process. Of course, a chest x-ray confirmed a complete pneumothorax. I was called to see him as a general surgeon gleason operator. I met with Aldo and his and we went ahead and made plans to p lace his right-sided chest tube. He is very familiar with chest tubes. He understands the risks including but not limited to bleeding, infection, scarring, change in contour of the skin as well as need for additional procedures namely thoracoscopy with pleurodesis and stapling of his bloods. He had expressed understanding and wished to proceed. PROCEDURE NOTE Aldo was kept in his ER bed in the supine position. We had him raise his right arm up over his head. The right chest wall was prepped and draped in the usual sterile fashion. Local anesthetic was injected into his chest wall and then between the ribs. A transverse incision was made sharply with a 10 blade knife and we developed our tunnel with our Pean clamp. We went between the 2 ribs and had a large gush of air and I felt his lung come up and touch my finger. We placed a 28-Finnish chest tube and secured that in place with an 0 silk suture. We do not see any pneumothorax currently. He has no shortness of breath or increased work of breathing. We took our chest x-ray in his lungs completely re-expanded. Unfortunately, our chest tube is not in as far as we thought. Nevertheless, it seems to be functioning well. I had him take deep breaths in and out. I can see the fluid moved back and forth with his respiratory effort. Consequently, Aldo tolerated the procedure quite well. Electronically Signed By: NICHOLAS AU MD 05/22/17 1713 PATIENT NAME: ALDO TANNER OPERATIVE REPORT DATE OF : 36 PHYSICIAN: NICHOLAS AU MD REPORT #: [id number] REPORT IS CONFIDENTIAL AND NOT TO BE RELEASED WITHOUT AUTHORIZATION [facility] [address] [place] [id number] Signed MD BRENT Bynum/Efren /[id number] cc: Dr. Umu Stanford Electronically Signed By: NICHOLAS AU MD 05/22/17 1713 PATIENT NAME: ALDO TANNER KRISTOPHER OPERATIVE REPORT DATE OF : 37 PHYSICIAN: NICHOLAS AU MD REPORT #: [id number] REPORT IS CONFIDENTIAL AND NOT TO BE RELEASED WITHOUT AUTHORIZATION
== END ==
LOC: ED 08:26
DX: J93.83 Other pneumothorax (principal); I10 Essential (primary) hypertension; Z79.82 Long term (current) use of aspirin; Z79.899 Other long term (current) drug therapy
CPT/HCPCS: 71010; 99285

== ENCOUNTER 2018-11-03 00:21 | Emergency (ER) | payer MEDICARE, OTHER ==
[~2018-11-03] VITALS: Ht 175.3 cm; Wt 81.7 kg
--- OUTSIDE RECORDS SUMMARY | ~2018-11-03 | XMS | Clinical Summary ---
Demographics + + + | Address | [address] | | | [place] [address] | + + + | Home Phone | | + + + | Preferred Language | Unknown | + + + | Marital Status | Single | + + + | Baptist Affiliation | Unknown | + + + | Race | White | + + + | Ethnic Group | Not or | + + + Author + + + | Author | [facility] | + + + | Organization | [facility] | + + + | Address | Unknown | + + + | Phone | Unavailable | + + + Support + + + + + | Name | Relationship | Address | Phone | + + + + + | JORGE TANNER | [place] | [address] | | | | | [place] | | | | | [address] | | + + + + + Care Team Providers + +------+ + | Care Operations Dispatcher Name | Role | Phone | + +------+ + | Yudy Martinez | PP | | + +------+ + Source Comments ROBYN is fully live on both [facility] Amb[facility] and [facility] InPatient.[facility] Allergies No Known Allergies Current Medications + + +-------+---------+------+------+-------+ | Prescription | Sig. | Disp. | Refills | Star | End | Statu | | | | | | t | Date | s | | | | | | Date | | | + + +-------+---------+------+------+-------+ | VITAMIN C OR | Daily | | | | | Activ | | | | | | | | e | + + +-------+---------+------+------+-------+ | Aspirin 81 mg Oral | Take 81 mg by mouth | | | | | Activ | | Tablet | once daily. | | | | | e | + + +-------+---------+------+------+-------+ | MULTIVIT | Take by mouth. | | | | | Activ | | &MINERALS/FERROUS | | | | | | e | | FUM (MULTI VITAMIN | | | | | | | | ORAL) | | | | | | | + + +-------+---------+------+------+-------+ | TAMSULOSIN 0.4 mg | | | | 07/1 | | Activ | | oral | | | | 0/20 | | e | | capsule,extended | | | | 14 | | | | release 24hr | | | | | | | + + +-------+---------+------+------+-------+ | atorvastatin 40 mg | Take 40 mg by mouth | | | | | Activ | | oral tablet | once daily. | | | | | e | + + +-------+---------+------+------+-------+ | metoprolol | Take 12.5 mg by | | | | | Activ | | tartrate 25 mg oral | mouth once daily. | | | | | e | | tablet | | | | | | | + + +-------+---------+------+------+-------+ Active Problems + + + | Problem | Noted Date | + + + | Cataract, nuclear sclerotic, both eyes | 03/14/2014 | + + + + + | Last Assessment & Plan: Reasonable vision | + + + + + | Type I juxtafoveal telangiectasis, right eye | 06/11/2010 | + + + + + | Last Assessment & Plan: No central edema, stable atrophy | | observe | + + Family History + + +------+ + | Medical History | Relation | Name | Comments | + + +------+ + | Glaucoma | Mother | | | + + +------+ + | Macular degeneration | Mother | | | + + +------+ + + +------+--------+ + | Relation | Name | Status | Comments | + +------+--------+ + | Mother | | | | + +------+--------+ + Social History + +-------+ +--------+------+ | Tobacco Use | Types | Packs/Day | Years | Date | | | | | Used | | + +-------+ +--------+------+ | Former Smoker | | | | | + +-------+ +--------+------+ + +---+---+---+ | Smokeless Tobacco: | | | | | Never Used | | | | + +---+---+---+ + + + | Sex Assigned at | Date Recorded | | | | + + + | Not on file | | + + + Plan of Treatment + + + + + | Health Maintenance | Due Date | Last Done | Comments | + + + + + | Pneumococcal (Adult) | | | | | (1 of 2 - PCV13) | 2 | | | + + + + + | Influenza (Flu) | | 03/28/2017, 04/09/2016, | | | vaccination (#1) | 8 | 04/18/2015, Additional history | | | | | exists | | + + + + + Results Not on filefrom Last 3 Months Insurance + +--------+ +--------+ + + | Payer | Benefi | Subscriber | Type | Phone | Address | | | t Plan | ID | | | | | | / | | | | | | | Group | | | | | + +--------+ +--------+ + + | MEDICARE | MEDICA | xxxxxxxxxxx | Medica | [phone]- | [address] | | | RE A & | | re | [phone] | [place] [address] | | | B | | | | | + +--------+ +--------+ + + | MODA MEDICARE | MODA | xxxxxxxxx | POS | +1- | [address] [address] | | SUPPLEMENT | MEDICA | | | [phone] | [place] [address] | | | RE | | | | | | | SUPPLE | | | | | | | MENT | | | | | + +--------+ +--------+ + + + +--------+ +--------+ + + | Guarantor Name | Accoun | Relation to | Date | Phone | Billing Address | | | t Type | Patient | of | | | | | | | | | | + +--------+ +--------+ + + | ALDO TANNER | Person | Self [birth year] | Home: | [address] | | | al/[place]ime | | 1936 | [phone] | [place] [address] | | | ronaldo | | | [address] | | + +--------+ +--------+ + +"
--- OUTSIDE RECORDS SUMMARY | ~2018-11-03 | XMS | Clinical Summary ---
Demographics + + + | Address | [address] | | | [place] [address] | + + + | Home Phone | | + + + | Preferred Language | Unknown | + + + | Marital Status | | + + + | Yarsani Affiliation | 1064 | + + + | Race | Unknown | + + + | Ethnic Group | Unknown | + + + Author + + + | Author | [facility] | + + + | Organization | [facility] | + + + | Address | Unknown | + + + | Phone | Unavailable | + + + Support + + +---------+ + | Name | Relationship | Address | Phone | + + +---------+ + | Alissa Tanner | [place] | Unknown | | + + +---------+ + Care Team Providers + +------+ + | Care Lead Miner Name | Role | Phone | + +------+ + | Umu Stanford MD | PP | | + +------+ + Allergies No Known Allergies Current Medications + + +-------+---------+------+------+-------+ | Prescription | Sig. | Disp. | Refills | Star | End | Statu | | | | | | t | Date | s | | | | | | Date | | | + + +-------+---------+------+------+-------+ | aspirin 81 MG | Take 81 mg by mouth | | | | | Activ | | tablet | daily. | | | | | e | + + +-------+---------+------+------+-------+ | atorvastatin | Take 40 mg by mouth | | | | | Activ | | (LIPITOR) 40 MG | daily. | | | | | e | | tablet | | | | | | | + + +-------+---------+------+------+-------+ | metoprolol | Take 25 mg by mouth | | | | | Activ | | (LOPRESSOR) 25 MG | daily. 12.5 mg daily | | | | | e | | tablet | | | | | | | + + +-------+---------+------+------+-------+ | Multiple | Take 1 tablet by | | | | | Activ | | Vitamins-Minerals | mouth daily. | | | | | e | | (MULTI COMPLETE PO) | | | | | | | + + +-------+---------+------+------+-------+ | tamsulosin | Take 0.4 mg by mouth | | | 07/1 | | Activ | | (FLOMAX) 0.4 MG | daily. | | | 0/20 | | e | | capsule | | | | 14 | | | + + +-------+---------+------+------+-------+ | ascorbic acid | Take 1,000 mg by | | | | | Activ | | (VITAMIN C) 1000 MG | mouth daily. | | | | | e | | tablet | | | | | | | + + +-------+---------+------+------+-------+ | cyanocobalamin | Take 1,000 mcg by | | | | | Activ | | (VITAMIN B-12) 1000 | mouth daily. | | | | | e | | MCG tablet | | | | | | | + + +-------+---------+------+------+-------+ Active Problems + + + | Problem | Noted Date | + + + | Pneumothorax on right | 05/21/2017 | + + + | Benign essential hypertension | 05/21/2017 | + + + | Other hyperlipidemia | 05/21/2017 | + + + | Benign prostatic hyperplasia without lower urinary tract symptoms | 05/21/2017 | + + + Social History + +-------+ +--------+------+ | Tobacco Use | Types | Packs/Day | Years | Date | | | | | Used | | + +-------+ +--------+------+ | Former Smoker | | 0.25 | | | + +-------+ +--------+------+ + +---+---+ + | Smokeless Tobacco: | | | Quit: | | Former User | | | 04/10/19 | | | | | 61 | + +---+---+ + + + +---------+ + | Alcohol Use | Drinks/We | oz/Week | Comments | | | ek | | | + + +---------+ + | Yes | | | every night/ glass of wine | + + +---------+ + + + + | Sex Assigned at | Date Recorded | | | | + + + | Not on file | | + + + Last Filed Vital Signs + + + + | Vital Sign | Reading | Time Taken | + + + + | Blood Pressure | 134/64 | 07/29/2017 10:04 AM PST | + + + + | Pulse | 78 | 07/29/2017 10:04 AM PST | + + + + | Temperature | 36.4 C (97.6 F) | 07/29/2017 10:04 AM PST | + + + + | Respiratory Rate | 16 | 06/13/2017 11:35 AM PST | + + + + | Oxygen Saturation | 97% | 07/29/2017 10:04 AM PST | + + + + | Inhaled Oxygen | - | - | | Concentration | | | + + + + | Weight | 83 kg (182 lb 14.4 | 07/29/2017 10:04 AM PST | | | oz) | | + + + + | Height | 177.8 cm (5' 10") | 07/29/2017 10:04 AM PST | + + + + | Body Mass Index | 26.24 | 07/29/2017 10:04 AM PST | + + + + Plan of Treatment + + + + + | Health Maintenance | Due Date | Last Done | Comments | + + + + + | Vaccine: | | | | | Dtap/Tdap/Td (1 - | 6 | | | | Tdap) | | | | + + + + + | Vaccine: Zoster (1 | | | | | of 2) | 7 | | | + + + + + | Vaccine: | | | | | Pneumococcal 65+ | 2 | | | | Low/Medium Risk (1 | | | | | of 2 - PCV13) | | | | + + + + + | Vaccine: Influenza | | | | | (Season Ended) | 9 | | | + + + + + Results Not on filefrom Last 3 Months Insurance + +--------+ +------+-------+ + | Payer | Benefi | Subscriber | Type | Phone | Address | | | t Plan | ID | | | | | | / | | | | | | | Group | | | | | + +--------+ +------+-------+ + | MEDICARE | MEDICA | [id number] | | | [address] | | | RE | | | | [place] [address] | | | IP-OP | | | | | + +--------+ +------+-------+ + | ODS HEALTH PLAN | ODS - | [id number] | | | | | | GENERI | | | | | | | C | | | | | + +--------+ +------+-------+ + + +--------+ +--------+ + + | Guarantor Name | Accoun | Relation to | Date | Phone | Billing Address | | | t Type | Patient | of | | | | | | | | | | + +--------+ +--------+ + + | ALDO TANNER | Person | Self | [birth year] | Home: | [address] | | | al/[place] | | 1936 | [phone] | [place] [address] | | | ronaldo | | | [address] | | + +--------+ +--------+ + +
--- OUTSIDE RECORDS SUMMARY | ~2018-11-03 | XMS | Clinical Summary ---
Demographics + + + | Address | [address] | | | [place] [address] | + + + | Home Phone | | + + + | Preferred Language | Unknown | + + + | Marital Status | Single | + + + | Synagogue Affiliation | Unknown | + + + [...] + | JORGE TANNER | [place] | [address] | | | | | [place] | | | | | [address] | | + + + + + Care Team Providers + +------+ + | Care Roving Department Supervisor Name | Role | Phone | + +------+ + | Yudy Martinez | PP | | + +------+ + Source Comments ROBYN is fully live on both [facility] Ambulatory and [facility] InPatient.[facility] Allergies No Known Allergies Current Medications + [...] | re | [address] | [place] [address] | | | B | | | | | + +--------+ +--------+ + + | MODA MEDICARE | MODA | xxxxxxxxx | POS | +1- | [address] [address] | | SUPPLEMENT | MEDICA | | | [phone] | [place] [address] | | | RE | | | [...] | Self | [birth year] | Home: | [address] | | | al/[place]ime | | 1936 | [phone] | [place] [address] | | | ronaldo | | | [address] | | + +--------+ +--------+ + +"
--- OUTSIDE RECORDS SUMMARY | ~2018-11-03 | XMS | Clinical Summary ---
Demographics + + + | Address | [address] | | | [place] [address] | + + + | Home Phone | | + + + | Preferred Language | Unknown | + + + | Marital Status | | + + + | Mu-Ism Affiliation | 1077 | + + + | Race | Unknown | + + + | Ethnic Group | Unknown | + + + Author + + + | Author | [facility] | | | and [place] | + + + | Organization | [facility] | | | and [facility] | + + + | Address | Unknown | + + + | Phone | Unavailable | + + + Support + + +---------+ + | Name | Relationship | Address | Phone | + + +---------+ + | Alissa,Magali | [place] | Unknown | | + + +---------+ + Care Team Providers + +------+ + | Care Tavern Keeper Name | Role | Phone | + +------+ + | Marixa Sawyer MD | PP | Unavailable | + +------+ + Allergies Not on File Medications Not on file Active Problems Not on file Social History + +-------+ +--------+------+ | Tobacco Use | Types | Packs/Day | Years | Date | | | | | Used | | + +-------+ +--------+------+ | Never Assessed | | | | | + +-------+ +--------+------+ + + + | Sex Assigned at | Date Recorded | | | | + + + | Not on file | | + + + + + + + | Job Start Date | Occupation | Industry | + + + + | Not on file | Not on file | Not on file | + + + + + + + + | Travel History | Travel Start | Travel End | + + + + + + | No recent travel history available. | + + Plan of Treatment + + [...] 3 Months Insurance + +--------+ +--------+ + +--------+ | Payer | Benefi | Subscriber | Effect | Phone | Address | Type | | | t Plan | ID | lesly | | | | | | / | | Dates | | | | | | Group | | | | | | + +--------+ +--------+ + +--------+ | [employer]ER[employer] ADMIN | VETERA | [id number] | 07/07/ | | | Indemn | | | NS | | 2016-P | | | ity | | | CHOICE | | resent | | | | + +--------+ +--------+ + +--------+ | MEDICARE | MEDICA | [id number] | 10/27/19 | [phone] | | Medica | | | RE | | 02-Pre | 5 | | re | | | PART A | | sent | | | | | | AND B | | | | | | + +--------+ +--------+ + +--------+ | MODA | MODA | [id number] | 07/28/19 | [phone] | [address] | Indemn | | | HEALTH | | 14-Pre | 9 | [address] | ity | | | MDCR | | sent | | [place], | | | | [place] | | | | [place] [address] | | + +--------+ +--------+ + +--------+ + +--------+ +--------+ + + | Guarantor Name | Accoun | Relation to | Date | Phone | Billing Address | | | t Type | Patient | of | | | | | | | | | | + +--------+ +--------+ + + | Aldo De Los Santos | Person | Self [birth year] | | [address] | | [place] | [place] | | 1936 | [phone] | [place] [address] | | | ronaldo | | | 3 (Home) | | + +--------+ +--------+ + + Advance Directives Patient has advance care planning documents on file. For more information, please contact:[facility] [address]"
--- OUTSIDE RECORDS SUMMARY | ~2018-11-03 | XMS | Clinical Summary ---
Demographics + + + | Address | [address] | | | [place] [address] | + + + | Home Phone | | + + + | Preferred Language | Unknown | + + + | Marital Status | | + + + | Adventism Affiliation | 1077 | + + + | Race | Unknown | + + + | Ethnic Group | Unknown | + + + Author + + + | Author | [facility] | | | and [place] | + + + | Organization | [facility] | | | and [...] Team Providers + +------+ + | Care Spring Coverer Name | Role | Phone | + [...] +--------+ | [employer]MIN | VETERA | [id number] | 07/07/ | | | Indemn | | | NS | | 2016-P | | | ity | | | CHOICE | | resent | | | | + +--------+ +--------+ + +--------+ | MEDICARE | MEDICA | [id number] | 10/27/19 | [phone] | | Medica | | | RE | | 02-Pre | 5 | | re | | | PART A | | sent | | | | | | AND B | | | | | | + +--------+ +--------+ + +--------+ | MODA | MODA | [id number] | 07/28/19 | [phone] | [address] | Indemn | | | HEALTH | | 14-Pre | 9 | [phone] | ity | | | MDCR | | sent | | [place], | | | | [place] | | | | [place] [address] | | + +--------+ +--------+ + +--------+ + +--------+ +--------+ + + | Guarantor Name | Accoun | Relation to | Date | Phone | Billing Address | | | t Type | Patient | of | | | | | | | | | | + +--------+ +--------+ + + | lAdo De Los Santos | Person | Self | [birth year] | | [address] | | [place] | [place] | | 1936 | [phone] | [place] [address] | | | ronaldo | | | 3 (Home) | | + +--------+ +--------+ + + Advance Directives Patient has advance care planning documents on file. For more information, please contact:[facility] [place] [address]"
--- OUTSIDE RECORDS SUMMARY | ~2018-11-03 | XMS | Clinical Summary ---
Demographics + + + | Address | [address] | | | [place] [address] | + + + | Home Phone | | + + + | Preferred Language | Unknown | + + + | Marital Status | | + + + | Restorationist Affiliation | 1064 | + + + | Race | Unknown | + + + | Ethnic Group | Unknown | + + + Author + + + | Author | [facility] | + + + | Organization | [facility] | + + + | Address | Unknown | + + + | Phone | Unavailable | + + + Support + + +---------+ + | Name | Relationship | Address | Phone | + + +---------+ + | Alissa Tanner | [place] | Unknown | | + + +---------+ + Care Team Providers + +------+ + | Care Furnace Fitter Name | Role | Phone | + [...] +------+-------+ + | MEDICARE | MEDICA | [id number] | | | [address] | | | RE | | | | [place] [address] | | | IP-OP | | | | | + +--------+ +------+-------+ + | ODS HEALTH PLAN | ODS - | [id number] | | | | | | GENERI [...] | Self | [birth year] | Home: | [address] | | | al/[place]ime | | 1936 | [phone] | [place] [address] | | | ronaldo | | | [address] | | + +--------+ +--------+ + +
[2018-11-03] MEDS ORDERED: NEURONTIN300 MG PO (00:38)
--- NOTE | 2018-11-03 14:00 | EKG ---
[facility] [address] [address] Signed Normal sinus rhythm Normal ECG When compared with ECG of 17-MAR-2017 20:31, No significant change was found Confirmed by KRISTEN LEBLANC MD ([id number]) on 11/03/2018 2:00:24 PM Electronically Signed By: KRISTEN LEBLANC MD 11/03/18 1400 PATIENT NAME: GEORGE TANNERD Electrocardiogram DATE OF : 37 PHYSICIAN: KRISTEN LEBLANC MD REPORT #: [id number] REPORT IS CONFIDENTIAL AND NOT TO BE RELEASED WITHOUT AUTHORIZATION
== END 2018-11-03 02:50 | disposition home or self-care (01) ==
LOC: ED 00:21
DX: R07.81 Pleurodynia (principal); I10 Essential (primary) hypertension; Z79.82 Long term (current) use of aspirin; Z79.899 Other long term (current) drug therapy
CPT/HCPCS: 71046; 80053; 83735; 84484; 85025; 85379; 93005; 93010; 99285-25

== ENCOUNTER 2025-05-15 01:28 | Emergency (ER) | payer OTHER, MEDICARE ==
[~2025-05-15] VITALS: Ht 175.3 cm; Wt 80.0 kg
[~2025-05-15 01:28] MED LIST changes: +NEURONTIN300 MG PO
[2025-05-15] MEDS ORDERED: TRANEXAMIC ACID 1,000 MG/10 ML AMP NAS ONE (01:45)
[2025-05-15] MEDS ORDERED: OXYMETAZOLINE HCL 30 ML BTL NAS ONE (02:15)
[2025-05-15] MEDS ORDERED: TRANEXAMIC ACID IN NACL,ISO-OS 1,000 MG/100 ML PIGGYBACK IV ONE (04:15)
[2025-05-15 04:47] LABS: BASOPHILS 0.4 % (0.2-1.2); EOSINOPHILS 0.3 % (0.8-7.0); LYMPHOCYTES 10.9 % (21.8-53.1); MCH 32.5 PG (25.7-32.2); MCHC 33.7 g/dL (32.3-36.5); MCV 96.5 fL (79.0-92.2); MONOCYTES 8.5 % (5.3-12.2); NEUTROPHILS 79.5 % (34.0-67.9); RBC 3.72 M/uL (4.63-6.08)
[2025-05-15 04:55] LABS: INR 1.07 (0.80-1.30); PROTIME 13.5 Sec (11.2-14.2)
[2025-05-15 05:10] VITALS: BP 107/59
== END 2025-05-15 05:10 | disposition home or self-care (01) ==
LOC: ED 01:28
PROVIDERS: Family Medicine
DX: R04.0 Epistaxis (principal); I10 Essential (primary) hypertension; Z79.82 Long term (current) use of aspirin; Z79.899 Other long term (current) drug therapy
CPT/HCPCS: 30901; 36415; 85025; 85610; 96365; 99283-25